=== PATIENT | female | born 1980 | race Caucasian/White ===

== ENCOUNTER 2020-11-07 18:40 | Emergency (ER) | payer MEDICARE ==
[2020-11-07] MEDS ORDERED: Ketorolac Tromethamine 15 MG/ML VIAL ONE (19:31)
== END 2020-11-07 20:04 | disposition home or self-care (01) ==
LOC: CSHERS 18:40
DX: S93.402A Sprain of unspecified ligament of left ankle, initial encounter (principal); F17.210 Nicotine dependence, cigarettes, uncomplicated; W10.1XXA Fall (on)(from) sidewalk curb, initial encounter
CPT/HCPCS: 96372; J1885